=== PATIENT | female | born 2000 | race African-American/Black ===

== ENCOUNTER 2023-06-22 20:17 | Emergency (ER) | payer OTHER ==
[~2023-06-22] VITALS: Ht 167.6 cm; Wt 61.4 kg
[2023-06-22 20:37] VITALS: BP 137/83; TEMP 99.5
[2023-06-22] MEDS ORDERED: AlOH3/diphen/Lidoc/MgOH2/Simet Oral Susp 10 ML UD Syringe PO ONE (21:00)
[2023-06-22] MEDS ORDERED: Ibuprofen 400 MG TAB PO ONE (21:00)
[2023-06-22] MEDS ORDERED: Acetaminophen 500 MG TAB PO ONE (21:00)
[2023-06-22 21:49] LABS: STREP A NEGATIVE
[2023-06-22 23:07] LABS: MONOSCREEN NEGATIVE
[2023-06-22 23:49] VITALS: PULSE 93
== END 2023-06-22 23:49 | disposition home or self-care (01) ==
LOC: COL.ER 20:17
PROVIDERS: Nurse Practitioner Primary Care
DX: J03.90 Acute tonsillitis, unspecified (principal)